=== PATIENT | female | born 1940 | race African-American/Black ===

== ENCOUNTER 2017-01-20 02:41 | Emergency (ER) | payer MEDICARE, BC ==
[~2017-01-20] VITALS: Ht 165.1 cm; Wt 64.0 kg
[2017-01-20 03:39] LABS: BASOPHILS % 0.6 % (0.0-2.0); EOSINOPHILS % 5.3 % (0.0-5.0); LYMPHOCYTES % 16.8 % (20.0-50.0); MEAN CORPUSCULAR HEMOGLOBIN 29.9 pg (28.0-32.0); MEAN CORPUSCULAR VOLUME 89.7 fL (81.0-99.0); MEAN PLATELET VOLUME 7.6 fl (7.4-10.4); MONOCYTES % 8.1 % (2.0-8.0); NEUTROPHILS % 69.2 % (40.0-76.0); PLATELET 236 x1000/uL (130-400); RED BLOOD CELL COUNT 4.02 mill/uL (4.2-5.4); RED CELL DISTRIBUTION WIDTH 12.6 % (11.6-14.6)
[2017-01-20 03:51] LABS: CARBON DIOXIDE 30 mEq/L (21-32); CHLORIDE 101 mEq/L (98-107); PROTHROMBIN TIME 10.6 sec
[2017-01-20] MEDS ORDERED: KETOROLAC 30MG/ML VIAL IV ONE (04:45)
[2017-01-20 04:51] VITALS: BP 181/86
== END 2017-01-20 05:29 | disposition home or self-care (01) ==
LOC: ER 02:42
DX: M25.562 Pain in left knee (principal); M79.652 Pain in left thigh; G89.29 Other chronic pain; M25.561 Pain in right knee; R53.1 Weakness; I10 Essential (primary) hypertension
CPT/HCPCS: 36415; 73552; 80053; 85025; 85610; 93971; 96374; 99285; J1885

== ENCOUNTER 2017-04-16 08:19 | Inpatient (IN) | payer MEDICARE, BC ==
[~2017-04-16] VITALS: Ht 160 cm; Wt 68.0 kg
[2017-04-16] MEDS ORDERED: HYDRALAZINE 20MG/ML VIAL IV ONE (08:45)
[2017-04-16 09:21] LABS: BASOPHILS % 0.4 % (0.0-2.0); EOSINOPHILS % 0.7 % (0.0-5.0); HEMATOCRIT. 33.3 % (36.0-48.0); HEMOGLOBIN. 11.2 g/dL (12.0-16.0); LYMPHOCYTES % 13.5 % (20.0-50.0); MEAN CORPUSCULAR HEMOGLOBIN 32.2 pg (28.0-32.0); MONOCYTES % 9.6 % (2.0-8.0); NEUTROPHILS % 75.8 % (40.0-76.0); PLATELET 233 x1000/uL (130-400); RED BLOOD CELL COUNT 3.47 mill/uL (4.2-5.4); RED CELL DISTRIBUTION WIDTH 15.7 % (11.6-14.6)
[2017-04-16 09:30] LABS: INR 1.1; PROTHROMBIN TIME 11.4 sec (9.4-11.6)
[2017-04-16 09:39] LABS: CARBON DIOXIDE 21 mEq/L (21-32); CHLORIDE 109 mEq/L (98-107); CREATINE KINASE 124 IU/L (26-192); TROPONIN I 0.03 ng/mL (0.00-0.04)
[2017-04-16 09:40] LABS: CREATINE KINASE MB FRACTION 1.3 ng/mL (0.5-3.6)
[2017-04-16] MEDS ORDERED: ACETAMINOPHEN 325MG TABLET PO ONE (10:30)
[2017-04-16] MEDS ORDERED: LORAZEPAM 2MG/ML CPJ IV ONE (14:00)
[2017-04-16] MEDS ORDERED: LORAZEPAM 2MG/ML CPJ ONE (14:05)
[2017-04-16 16:15] VITALS: BP 167/90
[2017-04-16] MEDS ORDERED: ACETAMINOPHEN 325MG TABLET PO PRN (16:45)
[2017-04-16] MEDS ORDERED: ONDANSETRON HCL 4MG/2ML VIAL IV PRN (16:45)
[2017-04-16] MEDS ORDERED: CLONIDINE 0.1MG TABLET PO PRN (16:45)
[2017-04-16] MEDS ORDERED: DONE5TAB33 PO (16:48)
[2017-04-16] MEDS ORDERED: NIFEDIPINE PO (16:50)
[2017-04-16 16:51] VITALS: BP 167/90
[2017-04-16] MEDS ORDERED: DEXT 5%/0.45% NACL 1000ML 1,000 ML IV SCH (17:00)
[2017-04-16] MEDS ORDERED: LEVOFLOXACIN 500MG PREMIX 100 ML IV NR (18:00)
[2017-04-16 18:10] LABS: CREATINE KINASE MB FRACTION 7.7 ng/mL (0.5-3.6)
[2017-04-16 18:16] LABS: TROPONIN I 2.1 ng/mL (0.00-0.04)
[2017-04-16 20:00] VITALS: BP 140/91
[2017-04-17] VITALS: BP 142/79
[2017-04-17 02:47] LABS: CREATINE KINASE MB FRACTION 6.5 ng/mL (0.5-3.6)
[2017-04-17 03:04] LABS: TROPONIN I 1.7 ng/mL (0.00-0.04)
[2017-04-17] MEDS: HYDROCODONE/ACETAMINOPHEN 5/325MG TABLET PO PRN ×3 (03:16→20:53)
[2017-04-17 04:00] VITALS: BP 131/78
[2017-04-17 08:00] VITALS: BP 144/75
[2017-04-17] MEDS ORDERED: ENOXAPARIN 40MG/0.4ML SYR SUBCUT SCH (09:00)
[2017-04-17 09:45] LABS: BASOPHILS % 0.4 % (0.0-2.0); HEMATOCRIT. 32.4 % (36.0-48.0); HEMOGLOBIN. 10.9 g/dL (12.0-16.0); LYMPHOCYTES % 17.1 % (20.0-50.0); MEAN CORPUSCULAR HEMOGLOBIN 32.9 pg (28.0-32.0); MEAN PLATELET VOLUME 7.6 fl (7.4-10.4); MONOCYTES % 10.2 % (2.0-8.0); NEUTROPHILS % 71.3 % (40.0-76.0); PLATELET 249 x1000/uL (130-400); RED CELL DISTRIBUTION WIDTH 16.2 % (11.6-14.6)
[2017-04-17] MEDS: NIFEDIPINE XL 90MG TAB PO SCH (09:50)
[2017-04-17] MEDS: DONEPEZIL HCL 10MG TABLET PO SCH (09:51)
[2017-04-17] MEDS: FOLIC ACID 1MG TABLET PO SCH (09:51)
[2017-04-17] MEDS: THIAMINE HCL 100MG TABLET PO SCH (09:51)
[2017-04-17] MEDS: METOPROLOL TARTRATE 25MG TABLET PO SCH ×2 (09:51→20:53)
[2017-04-17] MEDS ORDERED: ASPIRIN 81MG EC TABLET PO NR (10:00)
[2017-04-17 10:09] LABS: CREATINE KINASE MB FRACTION 5.9 ng/mL (0.5-3.6); PHOSPHORUS 2.9 mg/dL (2.5-4.9)
[2017-04-17 11:11] LABS: TROPONIN I 1.1 ng/mL (0.00-0.04)
[2017-04-17 12:00] VITALS: BP 156/85
[2017-04-17 16:00] VITALS: BP 134/64
[2017-04-17] MEDS ORDERED: ESOM20CA PO (16:58)
[2017-04-17] MEDS ORDERED: ACET-2178 PO (17:00)
[2017-04-17] MEDS ORDERED: DICL100G16 TP (17:02)
[2017-04-17 17:55] LABS: AMMONIA 19 uMol/L (<32)
[2017-04-17 18:10] LABS: FOLIC ACID (FOLATE) SERUM 8.7 ng/mL (>5.38)
[2017-04-17] MEDS: LEVOFLOXACIN 250MG PREMIX 50 ML IV SCH (18:47)
[2017-04-17] MEDS: LORAZEPAM 2MG/ML CPJ IV PRN (18:47)
[2017-04-17 20:00] VITALS: BP 173/88
[2017-04-17 20:27] LABS: ETHANOL BLOOD < 10 mg/dL
[2017-04-17 20:31] LABS: T4 FREE 0.94 ng/dL (0.76-1.46)
[2017-04-17] MEDS: ATORVASTATIN CALCIUM 10MG TABLET PO SCH (20:52)
[2017-04-17 21:02] LABS: TROPONIN I 0.97 ng/mL (0.00-0.04)
[2017-04-18] VITALS: BP 179/83
[2017-04-18] MEDS: LORAZEPAM 2MG/ML CPJ IV PRN ×3 (00:48→21:37)
[2017-04-18 03:40] LABS: *AMPHETAMINES SCREEN URINE NEGATIVE (NEGATIVE); *BARBITURATES SCREEN URINE NEGATIVE (NEGATIVE); *BENZODIAZEPINES SCREEN URINE NEGATIVE (NEGATIVE); CANNABINOID URINE SCREEN NEGATIVE (NEGATIVE); METHADONE URINE SCREEN NEGATIVE (NEGATIVE); OPIATES URINE SCREEN PRESUMTIVE POSITIVE (NEGATIVE); PHENCYCLIDINE URINE SCREEN NEGATIVE (NEGATIVE)
[2017-04-18 04:00] VITALS: BP 161/87
[2017-04-18] MEDS: HYDROCODONE/ACETAMINOPHEN 5/325MG TABLET PO PRN ×2 (04:49→16:29)
[2017-04-18 04:53] LABS: *COCAINE SCREEN URINE NEGATIVE (NEGATIVE)
[2017-04-18 06:25] LABS: BASOPHILS % 0.8 % (0.0-2.0); EOSINOPHILS % 2.9 % (0.0-5.0); HEMATOCRIT. 29.6 % (36.0-48.0); LYMPHOCYTES % 24.5 % (20.0-50.0); MEAN CORPUSCULAR HEMOGLOBIN 33.2 pg (28.0-32.0); MEAN CORPUSCULAR VOLUME 97.8 fL (81.0-99.0); MEAN PLATELET VOLUME 7.5 fl (7.4-10.4); MONOCYTES % 9.3 % (2.0-8.0); NEUTROPHILS % 62.5 % (40.0-76.0); PLATELET 228 x1000/uL (130-400); RED BLOOD CELL COUNT 3.03 mill/uL (4.2-5.4); RED CELL DISTRIBUTION WIDTH 15.5 % (11.6-14.6)
[2017-04-18 07:26] LABS: TROPONIN I 0.76 ng/mL (0.00-0.04)
[2017-04-18] MEDS ORDERED: ENOXAPARIN 60MG/0.6ML SYR SUBCUT SCH ×2 (08:00→21:00)
[2017-04-18 08:53] VITALS: BP 108/61
[2017-04-18] MEDS: METOPROLOL TARTRATE 25MG TABLET PO SCH ×3 (09:00→21:36)
[2017-04-18] MEDS: NIFEDIPINE XL 90MG TAB PO SCH (09:00)
[2017-04-18] MEDS: THIAMINE HCL 100MG TABLET PO SCH (09:29)
[2017-04-18] MEDS: DONEPEZIL HCL 10MG TABLET PO SCH (09:30)
[2017-04-18] MEDS: ASPIRIN 81MG EC TABLET PO SCH (09:30)
[2017-04-18] MEDS: FOLIC ACID 1MG TABLET PO SCH (09:32)
[2017-04-18] MEDS ORDERED: POTASSIUM CHLORIDE 20MEQ/PACKET PO NR (10:30)
[2017-04-18 12:00] VITALS: BP 136/67
[2017-04-18] MEDS ORDERED: POTASSIUM CHLORIDE INJ 40 MEQ in DEXT 5% WATER 250 ML IV NR (13:00)
[2017-04-18] MEDS ORDERED: MEDICATION NOT ON FORMULARY EA (Esomeprazole Mag Trihydrate (Nexium) 1 CAP) PO SCH (13:00)
[2017-04-18 16:48] VITALS: BP 136/85
[2017-04-18] MEDS: LEVOFLOXACIN 250MG PREMIX 50 ML IV SCH (17:13)
[2017-04-18 20:00] VITALS: BP 139/73
[2017-04-18 20:27] LABS: CLARITY URINE CLOUDY (CLEAR); COLOR URINE DARK YELLOW (YELLOW); GLUCOSE URINE NEGATIVE (NEGATIVE); KETONES URINE TRACE (NEGATIVE); LEUKOCYTE ESTERASE URINE 1+ (NEGATIVE); NITRITE URINE NEGATIVE (NEGATIVE); OCCULT BLOOD URINE 3+ (NEGATIVE); PH URINE 5.5 (4.5-8.0); PROTEIN URINE 2+ (NEGATIVE); SPECIFIC GRAVITY URINE 1.025 (1.005-1.030)
[2017-04-18] MEDS: ATORVASTATIN CALCIUM 10MG TABLET PO SCH ×2 (21:00→21:35)
[2017-04-19] VITALS: BP 120/60
[2017-04-19] MEDS: LORAZEPAM 2MG/ML CPJ IV PRN ×3 (01:37→22:40)
[2017-04-19 04:00] VITALS: BP 113/58
[2017-04-19 06:19] LABS: BASOPHILS % 0.6 % (0.0-2.0); EOSINOPHILS % 3.2 % (0.0-5.0); HEMATOCRIT. 32.1 % (36.0-48.0); HEMOGLOBIN. 10.9 g/dL (12.0-16.0); LYMPHOCYTES % 26.9 % (20.0-50.0); MEAN CORPUSCULAR HEMOGLOBIN 32.9 pg (28.0-32.0); MEAN CORPUSCULAR VOLUME 97.4 fL (81.0-99.0); MEAN PLATELET VOLUME 7.4 fl (7.4-10.4); MONOCYTES % 9.7 % (2.0-8.0); NEUTROPHILS % 59.6 % (40.0-76.0); PLATELET 249 x1000/uL (130-400); RED CELL DISTRIBUTION WIDTH 15.3 % (11.6-14.6)
[2017-04-19] MEDS ORDERED: PANTOPRAZOLE 40MG DR TABLET PO SCH (06:45)
[2017-04-19 07:40] VITALS: BP 129/67
[2017-04-19] MEDS: ENOXAPARIN 80MG/0.8ML SYR SUBCUT SCH ×3 (09:00→09:54)
[2017-04-19] MEDS: THIAMINE HCL 100MG TABLET PO SCH ×3 (09:00→09:55)
[2017-04-19] MEDS: FOLIC ACID 1MG TABLET PO SCH ×3 (09:00→09:44)
[2017-04-19] MEDS: ASPIRIN 81MG EC TABLET PO SCH ×3 (09:00→09:54)
[2017-04-19] MEDS: NIFEDIPINE XL 90MG TAB PO SCH ×3 (09:00→09:55)
[2017-04-19] MEDS: DONEPEZIL HCL 10MG TABLET PO SCH ×3 (09:00→09:54)
[2017-04-19] MEDS: FAMOTIDINE 20MG TABLET PO SCH ×3 (09:00→09:55)
[2017-04-19] MEDS: METOPROLOL TARTRATE 25MG TABLET PO SCH ×4 (09:00→20:47)
[2017-04-19 11:10] VITALS: BP 98/56
[2017-04-19] MEDS ORDERED: DICLOFENAC SODIUM 100 GM TP PRN (11:30)
[2017-04-19] MEDS: LEVOFLOXACIN 250MG TABLET PO SCH (12:17)
[2017-04-19] MEDS ORDERED: SENNOSIDES/DOCUSATE SOD 8.6/50MG TABLET PO PRN (12:30)
[2017-04-19] MEDS: DOCUSATE SODIUM 100MG CAPSULE PO SCH ×2 (12:37→17:18)
[2017-04-19] MEDS ORDERED: ACETAMINOPHEN 325MG TABLET PO SCH (13:00)
[2017-04-19] MEDS: SODIUM CHLORIDE 0.9% 1,000 ML IV SCH (13:16)
[2017-04-19 15:28] VITALS: BP 115/74
[2017-04-19 20:00] VITALS: BP 135/73
[2017-04-19] MEDS: ATORVASTATIN CALCIUM 10MG TABLET PO SCH (20:46)
[2017-04-20] VITALS: BP 140/81
[2017-04-20 04:00] VITALS: BP 143/79
[2017-04-20 06:20] LABS: BASOPHILS % 0.6 % (0.0-2.0); EOSINOPHILS % 4.3 % (0.0-5.0); HEMATOCRIT. 32.4 % (36.0-48.0); HEMOGLOBIN. 10.9 g/dL (12.0-16.0); LYMPHOCYTES % 21.3 % (20.0-50.0); MEAN CORPUSCULAR HEMOGLOBIN 33.1 pg (28.0-32.0); MEAN CORPUSCULAR VOLUME 97.9 fL (81.0-99.0); MEAN PLATELET VOLUME 7.9 fl (7.4-10.4); MONOCYTES % 10.5 % (2.0-8.0); NEUTROPHILS % 63.3 % (40.0-76.0); PLATELET 239 x1000/uL (130-400); RED BLOOD CELL COUNT 3.31 mill/uL (4.2-5.4); RED CELL DISTRIBUTION WIDTH 15.3 % (11.6-14.6)
[2017-04-20 07:23] LABS: TROPONIN I 0.16 ng/mL (0.00-0.04)
[2017-04-20] MEDS ORDERED: POTASSIUM CHLORIDE 20MEQ TABLET SR PO NR (07:45)
[2017-04-20 08:00] VITALS: BP 118/64
[2017-04-20] MEDS: DOCUSATE SODIUM 100MG CAPSULE PO SCH ×2 (08:26→16:32)
[2017-04-20] MEDS: DONEPEZIL HCL 10MG TABLET PO SCH (08:26)
[2017-04-20] MEDS: ASPIRIN 81MG EC TABLET PO SCH (08:26)
[2017-04-20] MEDS: FOLIC ACID 1MG TABLET PO SCH (08:26)
[2017-04-20] MEDS: THIAMINE HCL 100MG TABLET PO SCH (08:26)
[2017-04-20] MEDS: FAMOTIDINE 20MG TABLET PO SCH (08:27)
[2017-04-20] MEDS: SODIUM CHLORIDE 0.9% 1,000 ML IV SCH (08:27)
[2017-04-20] MEDS: ENOXAPARIN 80MG/0.8ML SYR SUBCUT SCH (08:28)
[2017-04-20] MEDS: METOPROLOL TARTRATE 25MG TABLET PO SCH ×2 (08:30→21:54)
[2017-04-20] MEDS: NIFEDIPINE XL 90MG TAB PO SCH (08:30)
[2017-04-20] MEDS: LEVOFLOXACIN 250MG TABLET PO SCH (11:51)
[2017-04-20 12:00] VITALS: BP 110/71
[2017-04-20 16:00] VITALS: BP 126/58
[2017-04-20 20:00] VITALS: BP 132/69
[2017-04-20] MEDS: ATORVASTATIN CALCIUM 10MG TABLET PO SCH (21:55)
[2017-04-20] MEDS: LORAZEPAM 2MG/ML CPJ IV PRN (21:55)
[2017-04-21] VITALS: BP 145/64
[2017-04-21 04:00] VITALS: BP 148/71
[2017-04-21 08:00] VITALS: BP 133/94
[2017-04-21] MEDS: DOCUSATE SODIUM 100MG CAPSULE PO SCH ×2 (09:02→17:00)
[2017-04-21] MEDS: ENOXAPARIN 80MG/0.8ML SYR SUBCUT SCH (09:02)
[2017-04-21] MEDS: FAMOTIDINE 20MG TABLET PO SCH (09:02)
[2017-04-21] MEDS: ASPIRIN 81MG EC TABLET PO SCH (09:02)
[2017-04-21] MEDS: DONEPEZIL HCL 10MG TABLET PO SCH (09:03)
[2017-04-21] MEDS: FOLIC ACID 1MG TABLET PO SCH (09:03)
[2017-04-21] MEDS: THIAMINE HCL 100MG TABLET PO SCH (09:03)
[2017-04-21] MEDS: NIFEDIPINE XL 90MG TAB PO SCH (09:04)
[2017-04-21] MEDS: METOPROLOL TARTRATE 25MG TABLET PO SCH (09:04)
[2017-04-21 09:42] LABS: BASOPHILS % 0.7 % (0.0-2.0); EOSINOPHILS % 4.8 % (0.0-5.0); HEMATOCRIT. 33.3 % (36.0-48.0); HEMOGLOBIN. 11.2 g/dL (12.0-16.0); LYMPHOCYTES % 19.4 % (20.0-50.0); MEAN CORPUSCULAR HEMOGLOBIN 33.2 pg (28.0-32.0); MEAN CORPUSCULAR VOLUME 98.9 fL (81.0-99.0); MEAN PLATELET VOLUME 7.5 fl (7.4-10.4); MONOCYTES % 11.7 % (2.0-8.0); NEUTROPHILS % 63.4 % (40.0-76.0); PLATELET 208 x1000/uL (130-400); RED BLOOD CELL COUNT 3.37 mill/uL (4.2-5.4); RED CELL DISTRIBUTION WIDTH 15.2 % (11.6-14.6)
[2017-04-21 10:10] LABS: CARBON DIOXIDE 27 mEq/L (21-32); CHLORIDE 104 mEq/L (98-107)
[2017-04-21] MEDS: LACTULOSE 20G/30ML UDC PO SCH ×2 (11:35→14:00)
[2017-04-21] MEDS: LEVOFLOXACIN 250MG TABLET PO SCH (11:35)
[2017-04-21 12:00] VITALS: BP 120/66
[2017-04-21 16:44] VITALS: BP 120/66
[2017-04-21 19:53] VITALS: BP 120/66
== END 2017-04-21 20:00 | DRG 280 ==
LOC: EDBD → ER 08:19 → 5WST 09:52 → EDBEDREQ 09:55 → EDBEDREQTM 09:55 → CANRESERV 14:16 → ENRESERV 14:16
PROVIDERS: ADMIT Internal Medicine Nephrology; ATTEND Internal Medicine Nephrology
DX: I21.4 Non-ST elevation (NSTEMI) myocardial infarction (principal); G92 Toxic encephalopathy; N17.9 Acute kidney failure, unspecified; N39.0 Urinary tract infection, site not specified; W18.39XA Other fall on same level, initial encounter; I16.0 Hypertensive urgency; E86.0 Dehydration; M79.604 Pain in right leg; D64.9 Anemia, unspecified; I13.10 Hypertensive heart and chronic kidney disease without heart failure, with stage 1 through stage 4 chronic kidney disease, or unspecified chronic kidney disease; N18.9 Chronic kidney disease, unspecified; K21.9 Gastro-esophageal reflux disease without esophagitis; F03.90 Unspecified dementia, unspecified severity, without behavioral disturbance, psychotic disturbance, mood disturbance, and anxiety; E78.00 Pure hypercholesterolemia, unspecified; I25.10 Atherosclerotic heart disease of native coronary artery without angina pectoris; I35.1 Nonrheumatic aortic (valve) insufficiency; M19.90 Unspecified osteoarthritis, unspecified site; Z79.899 Other long term (current) drug therapy; Z86.73 Personal history of transient ischemic attack (TIA), and cerebral infarction without residual deficits; I25.2 Old myocardial infarction; Y93.89 Activity, other specified; Y92.89 Other specified places as the place of occurrence of the external cause; Y99.8 Other external cause status
CPT/HCPCS: 36415; 70450; 70551; 71010; 72170; 73590; 80048; 80053; 80305; 81001; 82140; 82550; 82553; 82607; 82746; 82962; 83036; 83605; 83690; 83735; 83880; 84100; 84439; 84443; 84481; 84484; 85025; 85610; 85730; 87040; 87086; 92610; 93005; 93306; 96374; 96375; 97116; 97163; 97530; 99291; G0482; J0360; J1650; J1956; J2060; J3480; J3490; J7030; J7060; A4315

== ENCOUNTER 2017-05-17 16:55 | Emergency (ER) | payer MEDICARE, BC ==
[~2017-05-17] VITALS: Ht 167.6 cm; Wt 73.0 kg
[~2017-05-17 16:55] MED LIST: ACET-2178 PO; DICL100G16 TP; DONE5TAB33 PO; ESOM20CA PO; NIFEDIPINE PO
[2017-05-17] MEDS ORDERED: DONEPEZIL HCL 5MG TABLET PO ONE (18:15)
[2017-05-17] MEDS ORDERED: MEMANTINE HCL 5MG TABLET PO ONE (18:15)
[2017-05-17] MEDS ORDERED: LORAZEPAM 1MG TABLET PO ONE (18:15)
[2017-05-17 19:01] VITALS: BP 133/75
== END 2017-05-17 19:12 | disposition home or self-care (01) ==
LOC: EDBD → ER 17:45
DX: R41.82 Altered mental status, unspecified (principal); M19.90 Unspecified osteoarthritis, unspecified site; I10 Essential (primary) hypertension; F03.90 Unspecified dementia, unspecified severity, without behavioral disturbance, psychotic disturbance, mood disturbance, and anxiety; Z90.710 Acquired absence of both cervix and uterus; Z91.19 Patient's noncompliance with other medical treatment and regimen
CPT/HCPCS: 99284

== ENCOUNTER 2017-05-26 14:56 | Inpatient (IN) | payer MEDICARE, BC ==
[~2017-05-26] VITALS: Ht 162.6 cm; Wt 74.8 kg
[2017-05-26 17:25] LABS: CLARITY URINE CLOUDY (CLEAR); COLOR URINE DARK YELLOW (YELLOW); GLUCOSE URINE NEGATIVE (NEGATIVE); KETONES URINE 1+ (NEGATIVE); LEUKOCYTE ESTERASE URINE 2+ (NEGATIVE); NITRITE URINE NEGATIVE (NEGATIVE); OCCULT BLOOD URINE NEGATIVE (NEGATIVE); PROTEIN URINE 1+ (NEGATIVE); SPECIFIC GRAVITY URINE 1.037 (1.005-1.030)
[2017-05-26 17:29] LABS: BASOPHILS % 0.6 % (0.0-2.0); EOSINOPHILS % 0.8 % (0.0-5.0); HEMATOCRIT. 33.2 % (36.0-48.0); LYMPHOCYTES % 19.8 % (20.0-50.0); MEAN CORPUSCULAR VOLUME 96.3 fL (81.0-99.0); MEAN PLATELET VOLUME 7.9 fl (7.4-10.4); MONOCYTES % 7.1 % (2.0-8.0); NEUTROPHILS % 71.7 % (40.0-76.0); PLATELET 218 x1000/uL (130-400); RED BLOOD CELL COUNT 3.45 mill/uL (4.2-5.4); RED CELL DISTRIBUTION WIDTH 13.1 % (11.6-14.6)
[2017-05-26 17:39] LABS: CHLORIDE 104 mEq/L (98-107)
[2017-05-26 17:42] LABS: *AMPHETAMINES SCREEN URINE NEGATIVE (NEGATIVE); *BARBITURATES SCREEN URINE NEGATIVE (NEGATIVE); *BENZODIAZEPINES SCREEN URINE NEGATIVE (NEGATIVE); *COCAINE SCREEN URINE NEGATIVE (NEGATIVE); CANNABINOID URINE SCREEN NEGATIVE (NEGATIVE); METHADONE URINE SCREEN NEGATIVE (NEGATIVE); OPIATES URINE SCREEN NEGATIVE (NEGATIVE); PHENCYCLIDINE URINE SCREEN NEGATIVE (NEGATIVE)
[2017-05-26 17:47] LABS: CARBON DIOXIDE 28 mEq/L (21-32); ETHANOL BLOOD < 10 mg/dL
[2017-05-26] MEDS ORDERED: SODIUM CHLORIDE 0.9% 500 ML IV ONE (18:23)
[2017-05-26] MEDS ORDERED: CEFTRIAXONE 1 G PREMIX 50 ML IV ONE (18:30)
[2017-05-26 23:00] VITALS: BP 157/72
[2017-05-26] MEDS ORDERED: MORPHINE SULFATE 4 MG/ML CPJ (NOT FOR IM USE) IV PRN (23:21)
[2017-05-26] MEDS: SODIUM CHLORIDE 0.9% 1,000 ML IV SCH (23:30)
[2017-05-27] VITALS: BP 157/72
[2017-05-27] MEDS: LORAZEPAM 2MG/ML CPJ IV PRN ×3 (01:22→20:50)
[2017-05-27 04:00] VITALS: BP 145/98
[2017-05-27 07:59] LABS: BASOPHILS % 0.5 % (0.0-2.0); EOSINOPHILS % 1.3 % (0.0-5.0); HEMATOCRIT. 29.9 % (36.0-48.0); HEMOGLOBIN. 9.9 g/dL (12.0-16.0); MEAN CORPUSCULAR HEMOGLOBIN 32.2 pg (28.0-32.0); MEAN CORPUSCULAR VOLUME 97.2 fL (81.0-99.0); MEAN PLATELET VOLUME 8.2 fl (7.4-10.4); MONOCYTES % 7.4 % (2.0-8.0); NEUTROPHILS % 73.8 % (40.0-76.0); PLATELET 199 x1000/uL (130-400); RED BLOOD CELL COUNT 3.08 mill/uL (4.2-5.4)
[2017-05-27 08:00] VITALS: BP 147/73
[2017-05-27 08:10] LABS: CARBON DIOXIDE 28 mEq/L (21-32); CHLORIDE 107 mEq/L (98-107)
[2017-05-27] MEDS ORDERED: ENOXAPARIN 40MG/0.4ML SYR SUBCUT SCH ×2 (09:00→11:15)
[2017-05-27] MEDS ORDERED: ENOXAPARIN 30MG/0.3ML SYR SUBCUT SCH (09:00)
[2017-05-27] MEDS: SODIUM CHLORIDE 0.9% 1,000 ML IV SCH (09:23)
[2017-05-27] MEDS ORDERED: IPRATROPIUM/ALBUTEROL 0.5-3(2.5)MG/3ML NEB INH PRN (11:00)
[2017-05-27] MEDS ORDERED: CLONIDINE 0.1MG TABLET PO PRN (11:15)
[2017-05-27] MEDS ORDERED: HYDROCODONE/ACETAMINOPHEN 5/325MG TABLET PO PRN (11:15)
[2017-05-27] MEDS ORDERED: MORPHINE SULFATE 2 MG/ML CPJ (NOT FOR IM USE) IV PRN (11:15)
[2017-05-27] MEDS ORDERED: ONDANSETRON HCL 4MG/2ML VIAL IV PRN (11:15)
[2017-05-27 12:00] VITALS: BP 109/66
[2017-05-27] MEDS ORDERED: METHYLPREDNISOLONE SOD SUCC 125 MG/2 ML VIAL IV SCH (12:00)
[2017-05-27] MEDS: ACETAMINOPHEN 500MG TABLET PO SCH ×2 (13:00→18:12)
[2017-05-27 16:00] VITALS: BP 153/75
[2017-05-27 16:59] LABS: CREATINE KINASE MB FRACTION 6.3 ng/mL (0.5-3.6); TROPONIN I 0.08 ng/mL (0.00-0.04)
[2017-05-27] MEDS: CEFTRIAXONE 1 G PREMIX 50 ML IV SCH (18:13)
[2017-05-27 20:00] VITALS: BP 125/87
[2017-05-27] MEDS: DONEPEZIL HCL 5MG TABLET PO SCH (21:00)
[2017-05-28] VITALS: BP 157/73
[2017-05-28] MEDS: LORAZEPAM 2MG/ML CPJ IV PRN ×3 (02:00→15:21)
[2017-05-28 04:00] VITALS: BP 171/91
[2017-05-28 08:00] VITALS: BP 151/77
[2017-05-28] MEDS: ASPIRIN 81MG EC TABLET PO SCH (10:10)
[2017-05-28] MEDS: ACETAMINOPHEN 500MG TABLET PO SCH ×3 (10:10→17:43)
[2017-05-28] MEDS: THIAMINE HCL 100MG TABLET PO SCH (10:11)
[2017-05-28] MEDS: ENOXAPARIN 40MG/0.4ML SYR SUBCUT SCH (10:25)
[2017-05-28 12:00] VITALS: BP 137/80
[2017-05-28 12:08] LABS: CREATINE KINASE MB FRACTION 4.8 ng/mL (0.5-3.6); TROPONIN I 0.06 ng/mL (0.00-0.04)
[2017-05-28] MEDS: SODIUM CHLORIDE 0.9% 1,000 ML IV SCH (15:30)
[2017-05-28 16:00] VITALS: BP 137/68
[2017-05-28] MEDS: CEFTRIAXONE 1 G PREMIX 50 ML IV SCH (18:00)
[2017-05-28 20:00] VITALS: BP 144/69
[2017-05-28] MEDS: DONEPEZIL HCL 5MG TABLET PO SCH (21:00)
[2017-05-29] VITALS: BP 136/79
[2017-05-29 04:00] VITALS: BP 164/67
[2017-05-29 08:00] VITALS: BP 124/70
[2017-05-29] MEDS: ASPIRIN 81MG EC TABLET PO SCH (08:00)
[2017-05-29] MEDS: THIAMINE HCL 100MG TABLET PO SCH (08:00)
[2017-05-29] MEDS: ACETAMINOPHEN 500MG TABLET PO SCH ×3 (08:01→17:00)
[2017-05-29] MEDS: ENOXAPARIN 40MG/0.4ML SYR SUBCUT SCH (08:01)
[2017-05-29 10:46] LABS: BASOPHILS % 0.7 % (0.0-2.0); EOSINOPHILS % 5.3 % (0.0-5.0); HEMATOCRIT. 28.3 % (36.0-48.0); HEMOGLOBIN. 9.4 g/dL (12.0-16.0); LYMPHOCYTES % 26.7 % (20.0-50.0); MEAN CORPUSCULAR HEMOGLOBIN 32.1 pg (28.0-32.0); MEAN CORPUSCULAR VOLUME 96.4 fL (81.0-99.0); MEAN PLATELET VOLUME 7.9 fl (7.4-10.4); MONOCYTES % 8.5 % (2.0-8.0); NEUTROPHILS % 58.8 % (40.0-76.0); PLATELET 201 x1000/uL (130-400); RED BLOOD CELL COUNT 2.94 mill/uL (4.2-5.4); RED CELL DISTRIBUTION WIDTH 13.2 % (11.6-14.6)
[2017-05-29 11:13] LABS: PHOSPHORUS 3.4 mg/dL (2.5-4.9)
[2017-05-29 12:00] VITALS: BP 131/68
[2017-05-29 16:00] VITALS: BP 116/93
[2017-05-29] MEDS: CEFTRIAXONE 1 G PREMIX 50 ML IV SCH (18:00)
[2017-05-29 20:00] VITALS: BP 160/70
[2017-05-29] MEDS: DONEPEZIL HCL 5MG TABLET PO SCH (21:54)
[2017-05-30] MEDS: ACETAMINOPHEN 500MG TABLET PO SCH (09:37)
[2017-05-30] MEDS: THIAMINE HCL 100MG TABLET PO SCH (09:37)
[2017-05-30] MEDS: ASPIRIN 81MG EC TABLET PO SCH (09:37)
[2017-05-30] MEDS: ENOXAPARIN 40MG/0.4ML SYR SUBCUT SCH (09:38)
[2017-05-30 14:36] VITALS: BP 130/79
== END 2017-05-30 15:00 | disposition home or self-care (01) | DRG 70 ==
LOC: EDBD → ER 14:56 → 6EST 20:46 → ENRESERV 21:15 → 6EST 22:20
PROVIDERS: ADMIT Internal Medicine Nephrology; ATTEND Internal Medicine Nephrology
DX: G93.41 Metabolic encephalopathy (principal); N17.0 Acute kidney failure with tubular necrosis; F03.91 Unspecified dementia, unspecified severity, with behavioral disturbance; N39.0 Urinary tract infection, site not specified; Z78.1 Physical restraint status; E86.0 Dehydration; I10 Essential (primary) hypertension; Z90.710 Acquired absence of both cervix and uterus; M19.90 Unspecified osteoarthritis, unspecified site; Z79.899 Other long term (current) drug therapy
CPT/HCPCS: 36415; 71010; 80048; 80053; 80305; 81001; 82550; 82553; 82962; 83735; 84100; 84484; 85025; 93306; 97162; 99285; C1893; G0482; J0696; J1650; J2060; J7030; J7040

== ENCOUNTER 2017-06-01 15:10 | Emergency (ER) | payer MEDICARE, BC ==
[~2017-06-01] VITALS: Ht 162.6 cm; Wt 71.0 kg
[2017-06-01 15:20] VITALS: BP 108/56
== END 2017-06-01 17:43 | disposition left against medical advice (07) ==
LOC: EDBD → ER 15:10
DX: R40.4 Transient alteration of awareness (principal); F03.90 Unspecified dementia, unspecified severity, without behavioral disturbance, psychotic disturbance, mood disturbance, and anxiety; Z53.21 Procedure and treatment not carried out due to patient leaving prior to being seen by health care provider

== ENCOUNTER 2017-06-12 14:20 | Inpatient (IN) | payer MEDICARE, BC ==
[~2017-06-12] VITALS: Ht 162.6 cm; Wt 68.0 kg
[2017-06-12] MEDS ORDERED: DEXT 5%/0.45% NACL 1000ML 1,000 ML IV ONE (14:54)
[2017-06-12 15:28] LABS: CHLORIDE 103 mEq/L (98-107)
[2017-06-12 15:29] LABS: BASOPHILS % 0.8 % (0.0-2.0); EOSINOPHILS % 4.1 % (0.0-5.0); HEMATOCRIT. 29.9 % (36.0-48.0); HEMOGLOBIN. 10.1 g/dL (12.0-16.0); LYMPHOCYTES % 24.6 % (20.0-50.0); MEAN CORPUSCULAR VOLUME 97.9 fL (81.0-99.0); MEAN PLATELET VOLUME 7.5 fl (7.4-10.4); MONOCYTES % 8.5 % (2.0-8.0); PLATELET 253 x1000/uL (130-400); RED BLOOD CELL COUNT 3.05 mill/uL (4.2-5.4); RED CELL DISTRIBUTION WIDTH 13.6 % (11.6-14.6)
[2017-06-12 15:32] LABS: AMMONIA 16 uMol/L (<32)
[2017-06-12 15:39] LABS: CARBON DIOXIDE 26 mEq/L (21-32); CREATINE KINASE 37 IU/L (26-192); ETHANOL BLOOD < 10 mg/dL; TROPONIN I < 0.02 ng/mL (0.00-0.04)
[2017-06-12] MEDS ORDERED: LORAZEPAM 2MG/ML CPJ IV ONE (17:00)
[2017-06-12 18:20] LABS: CLARITY URINE CLEAR (CLEAR); COLOR URINE YELLOW (YELLOW); GLUCOSE URINE NEGATIVE (NEGATIVE); KETONES URINE NEGATIVE (NEGATIVE); LEUKOCYTE ESTERASE URINE 2+ (NEGATIVE); NITRITE URINE NEGATIVE (NEGATIVE); OCCULT BLOOD URINE NEGATIVE (NEGATIVE); PROTEIN URINE NEGATIVE (NEGATIVE); SPECIFIC GRAVITY URINE 1.013 (1.005-1.030); UROBILINOGEN URINE 0.2 E.U./dL (0.2-1.0)
[2017-06-12 18:33] LABS: *AMPHETAMINES SCREEN URINE NEGATIVE (NEGATIVE); *BARBITURATES SCREEN URINE NEGATIVE (NEGATIVE); *BENZODIAZEPINES SCREEN URINE NEGATIVE (NEGATIVE); *COCAINE SCREEN URINE NEGATIVE (NEGATIVE); CANNABINOID URINE SCREEN NEGATIVE (NEGATIVE); METHADONE URINE SCREEN NEGATIVE (NEGATIVE); OPIATES URINE SCREEN NEGATIVE (NEGATIVE); PHENCYCLIDINE URINE SCREEN NEGATIVE (NEGATIVE)
[2017-06-12] MEDS ORDERED: ZIPRASIDONE MESYLATE 20MG/VIAL IM ONE (18:45)
[2017-06-12] MEDS ORDERED: CEFTRIAXONE 1 G PREMIX 50 ML IV ONE (20:00)
[2017-06-12 21:20] VITALS: BP 158/82
[2017-06-12 21:30] VITALS: BP 158/82
[2017-06-12] MEDS ORDERED: LORAZEPAM 2MG/ML CPJ IV PRN (22:22)
[2017-06-12] MEDS ORDERED: DEXT 5%/0.9% NACL 1,000 ML IV SCH (22:30)
[2017-06-13] VITALS: BP 145/77
[2017-06-13 04:00] VITALS: BP 156/66
[2017-06-13 08:00] VITALS: BP 141/60
[2017-06-13] MEDS ORDERED: ENOXAPARIN 40MG/0.4ML SYR SUBCUT SCH (09:00)
[2017-06-13] MEDS: ENOXAPARIN 30MG/0.3ML SYR SUBCUT SCH (09:02)
[2017-06-13 12:00] VITALS: BP 146/61
[2017-06-13] MEDS ORDERED: ONDANSETRON HCL 4MG/2ML VIAL IV PRN (14:00)
[2017-06-13] MEDS ORDERED: MORPHINE SULFATE 10 MG/ML CPJ IV PRN (14:00)
[2017-06-13] MEDS: THIAMINE HCL 100MG TABLET PO SCH (14:00)
[2017-06-13] MEDS ORDERED: DICLOFENAC SODIUM 100 GM TP PRN (14:30)
[2017-06-13] MEDS: SODIUM CHLORIDE 0.9% 1,000 ML IV SCH (14:39)
[2017-06-13] MEDS: CEFTRIAXONE 1 G PREMIX 50 ML IV SCH (14:58)
[2017-06-13 16:00] VITALS: BP 139/65
[2017-06-13] MEDS: ACETAMINOPHEN 325MG TABLET PO SCH (16:24)
[2017-06-13] MEDS: NIFEDIPINE XL 90MG TAB PO SCH (16:24)
[2017-06-13 19:52] VITALS: BP 130/57
[2017-06-13 21:34] LABS: CLARITY URINE CLEAR (CLEAR); COLOR URINE YELLOW (YELLOW); GLUCOSE URINE NEGATIVE (NEGATIVE); KETONES URINE NEGATIVE (NEGATIVE); LEUKOCYTE ESTERASE URINE NEGATIVE (NEGATIVE); NITRITE URINE NEGATIVE (NEGATIVE); OCCULT BLOOD URINE NEGATIVE (NEGATIVE); PH URINE 6.5 (4.5-8.0); PROTEIN URINE NEGATIVE (NEGATIVE); SPECIFIC GRAVITY URINE 1.012 (1.005-1.030); UROBILINOGEN URINE 0.2 E.U./dL (0.2-1.0)
[2017-06-14] VITALS: BP 146/62
[2017-06-14 04:00] VITALS: BP 137/64
[2017-06-14] MEDS: SODIUM CHLORIDE 0.9% 1,000 ML IV SCH ×2 (04:26→20:35)
[2017-06-14 07:28] LABS: BASOPHILS % 0.7 % (0.0-2.0); EOSINOPHILS % 5.5 % (0.0-5.0); HEMATOCRIT. 29.5 % (36.0-48.0); HEMOGLOBIN. 9.8 g/dL (12.0-16.0); LYMPHOCYTES % 31.6 % (20.0-50.0); MEAN CORPUSCULAR HEMOGLOBIN 32.3 pg (28.0-32.0); MEAN CORPUSCULAR VOLUME 97.4 fL (81.0-99.0); MEAN PLATELET VOLUME 7.5 fl (7.4-10.4); MONOCYTES % 8.2 % (2.0-8.0); PLATELET 246 x1000/uL (130-400); RED BLOOD CELL COUNT 3.03 mill/uL (4.2-5.4); RED CELL DISTRIBUTION WIDTH 13.7 % (11.6-14.6)
[2017-06-14 08:00] VITALS: BP 142/67
[2017-06-14] MEDS ORDERED: MEDICATION NOT ON FORMULARY EA (Esomeprazole Mag Trihydrate (Nexium) 1 CAP) PO SCH (09:00)
[2017-06-14] MEDS: NIFEDIPINE XL 90MG TAB PO SCH (09:37)
[2017-06-14] MEDS: THIAMINE HCL 100MG TABLET PO SCH (10:41)
[2017-06-14] MEDS: FOLIC ACID 1MG TABLET PO SCH (10:41)
[2017-06-14] MEDS: ACETAMINOPHEN 325MG TABLET PO SCH (10:42)
[2017-06-14] MEDS: DONEPEZIL HCL 5MG TABLET PO SCH (10:42)
[2017-06-14] MEDS: PANTOPRAZOLE 40MG DR TABLET PO SCH (10:42)
[2017-06-14] MEDS: ENOXAPARIN 30MG/0.3ML SYR SUBCUT SCH (10:43)
[2017-06-14 12:00] VITALS: BP 129/59
[2017-06-14] MEDS: ACETAMINOPHEN 500MG TABLET PO SCH ×2 (15:09→18:04)
[2017-06-14] MEDS: CEFTRIAXONE 1 G PREMIX 50 ML IV SCH (15:09)
[2017-06-14 16:00] VITALS: BP 131/66
[2017-06-14 20:00] VITALS: BP 151/69
[2017-06-14] MEDS: DOCUSATE SODIUM 100MG CAPSULE PO SCH (20:35)
[2017-06-14] MEDS: LORAZEPAM 2MG/ML CPJ IV PRN (20:53)
[2017-06-15] VITALS: BP 143/56
[2017-06-15 04:00] VITALS: BP 148/75
[2017-06-15 08:00] VITALS: BP 138/59
[2017-06-15] MEDS: DONEPEZIL HCL 5MG TABLET PO SCH (08:50)
[2017-06-15] MEDS: ACETAMINOPHEN 500MG TABLET PO SCH ×3 (08:50→17:00)
[2017-06-15] MEDS: PANTOPRAZOLE 40MG DR TABLET PO SCH (08:50)
[2017-06-15] MEDS: FOLIC ACID 1MG TABLET PO SCH (08:50)
[2017-06-15] MEDS: HYDROCODONE/ACETAMINOPHEN 5/325MG TABLET PO PRN ×3 (08:51→17:11)
[2017-06-15] MEDS: NIFEDIPINE XL 90MG TAB PO SCH (08:51)
[2017-06-15] MEDS: THIAMINE HCL 100MG TABLET PO SCH (08:51)
[2017-06-15] MEDS: DOCUSATE SODIUM 100MG CAPSULE PO SCH ×2 (08:51→17:11)
[2017-06-15] MEDS ORDERED: ENOXAPARIN 40MG/0.4ML SYR SUBCUT SCH (09:00)
[2017-06-15] MEDS: LORAZEPAM 2MG/ML CPJ IV PRN ×3 (09:02→23:23)
[2017-06-15 11:03] LABS: BASOPHILS % 1.1 % (0.0-2.0); EOSINOPHILS % 0.4 % (0.0-5.0); HEMATOCRIT. 30.4 % (36.0-48.0); HEMOGLOBIN. 10.2 g/dL (12.0-16.0); LYMPHOCYTES % 8.7 % (20.0-50.0); MEAN CORPUSCULAR HEMOGLOBIN 33.6 pg (28.0-32.0); MEAN CORPUSCULAR VOLUME 99.8 fL (81.0-99.0); MEAN PLATELET VOLUME 8.2 fl (7.4-10.4); MONOCYTES % 4.6 % (2.0-8.0); NEUTROPHILS % 85.2 % (40.0-76.0); PLATELET 90 x1000/uL (130-400); RED BLOOD CELL COUNT 3.04 mill/uL (4.2-5.4); RED CELL DISTRIBUTION WIDTH 13.7 % (11.6-14.6)
[2017-06-15 11:26] LABS: CARBON DIOXIDE 24 mEq/L (21-32); CHLORIDE 109 mEq/L (98-107)
[2017-06-15 12:00] VITALS: BP 115/76
[2017-06-15] MEDS: CEFTRIAXONE 1 G PREMIX 50 ML IV SCH (15:36)
[2017-06-15 16:00] VITALS: BP 143/73
[2017-06-15 20:00] VITALS: BP 163/73
[2017-06-16] VITALS: BP 170/71
[2017-06-16 04:00] VITALS: BP 157/75
[2017-06-16] MEDS: LORAZEPAM 2MG/ML CPJ IV PRN ×2 (06:09→09:07)
[2017-06-16 08:00] VITALS: BP 151/77
[2017-06-16] MEDS: ACETAMINOPHEN 500MG TABLET PO SCH ×3 (09:00→16:20)
[2017-06-16] MEDS: DOCUSATE SODIUM 100MG CAPSULE PO SCH ×2 (09:06→16:20)
[2017-06-16] MEDS: DONEPEZIL HCL 5MG TABLET PO SCH (09:06)
[2017-06-16] MEDS: FOLIC ACID 1MG TABLET PO SCH (09:06)
[2017-06-16] MEDS: NIFEDIPINE XL 90MG TAB PO SCH (09:06)
[2017-06-16] MEDS: HYDROCODONE/ACETAMINOPHEN 5/325MG TABLET PO PRN ×3 (09:06→17:15)
[2017-06-16] MEDS: PANTOPRAZOLE 40MG DR TABLET PO SCH (09:06)
[2017-06-16] MEDS: THIAMINE HCL 100MG TABLET PO SCH (09:06)
[2017-06-16 12:00] VITALS: BP 127/65
[2017-06-16] MEDS: CEFTRIAXONE 1 G PREMIX 50 ML IV SCH (15:19)
[2017-06-16 16:00] VITALS: BP 134/68
[2017-06-16] MEDS: QUETIAPINE FUMARATE 25MG TABLET PO SCH (17:45)
[2017-06-16 20:00] VITALS: BP 166/64
[2017-06-17] VITALS: BP 104/83
[2017-06-17 04:00] VITALS: BP 173/71
[2017-06-17 08:00] VITALS: BP 136/65
[2017-06-17 08:25] LABS: BASOPHILS % 0.6 % (0.0-2.0); EOSINOPHILS % 5.6 % (0.0-5.0); HEMATOCRIT. 31.7 % (36.0-48.0); HEMOGLOBIN. 10.6 g/dL (12.0-16.0); LYMPHOCYTES % 26.7 % (20.0-50.0); MEAN CORPUSCULAR HEMOGLOBIN 32.6 pg (28.0-32.0); MEAN CORPUSCULAR VOLUME 97.4 fL (81.0-99.0); MEAN PLATELET VOLUME 7.4 fl (7.4-10.4); MONOCYTES % 8.4 % (2.0-8.0); NEUTROPHILS % 58.7 % (40.0-76.0); PLATELET 245 x1000/uL (130-400); RED BLOOD CELL COUNT 3.25 mill/uL (4.2-5.4); RED CELL DISTRIBUTION WIDTH 13.5 % (11.6-14.6)
[2017-06-17] MEDS: THIAMINE HCL 100MG TABLET PO SCH (09:29)
[2017-06-17] MEDS: FOLIC ACID 1MG TABLET PO SCH (09:29)
[2017-06-17] MEDS: DONEPEZIL HCL 5MG TABLET PO SCH (09:30)
[2017-06-17] MEDS: PANTOPRAZOLE 40MG DR TABLET PO SCH (09:30)
[2017-06-17] MEDS: DOCUSATE SODIUM 100MG CAPSULE PO SCH ×2 (09:30→17:28)
[2017-06-17] MEDS: NIFEDIPINE XL 90MG TAB PO SCH (09:31)
[2017-06-17] MEDS: ACETAMINOPHEN 500MG TABLET PO SCH ×3 (09:33→17:28)
[2017-06-17 12:00] VITALS: BP 130/64
[2017-06-17] MEDS: QUETIAPINE FUMARATE 25MG TABLET PO SCH ×2 (12:11→17:28)
[2017-06-17] MEDS: CEFTRIAXONE 1 G PREMIX 50 ML IV SCH (15:00)
[2017-06-17 16:00] VITALS: BP 138/72
[2017-06-17 20:00] VITALS: BP 131/68
[2017-06-18] VITALS: BP 122/78
[2017-06-18 04:00] VITALS: BP 122/61
[2017-06-18 06:37] LABS: AMMONIA < 10 uMol/L (<32)
[2017-06-18 08:00] VITALS: BP 131/70
[2017-06-18] MEDS: QUETIAPINE FUMARATE 25MG TABLET PO SCH ×2 (09:26→17:30)
[2017-06-18] MEDS: DONEPEZIL HCL 5MG TABLET PO SCH (09:26)
[2017-06-18] MEDS: DOCUSATE SODIUM 100MG CAPSULE PO SCH ×2 (09:26→17:30)
[2017-06-18] MEDS: NIFEDIPINE XL 90MG TAB PO SCH (09:27)
[2017-06-18] MEDS: PANTOPRAZOLE 40MG DR TABLET PO SCH (09:27)
[2017-06-18] MEDS: FOLIC ACID 1MG TABLET PO SCH (09:27)
[2017-06-18] MEDS: THIAMINE HCL 100MG TABLET PO SCH (09:28)
[2017-06-18] MEDS: ACETAMINOPHEN 500MG TABLET PO SCH ×3 (09:28→17:32)
[2017-06-18 12:00] VITALS: BP 112/58
[2017-06-18] MEDS: CEFTRIAXONE 1 G PREMIX 50 ML IV SCH (15:00)
[2017-06-18 16:00] VITALS: BP 122/53
[2017-06-18 17:05] LABS: AMMONIA < 25 uMol/L (<32)
[2017-06-18 17:10] LABS: EOSINOPHILS % 5.1 % (0.0-5.0); HEMATOCRIT. 28.9 % (36.0-48.0); HEMOGLOBIN. 9.4 g/dL (12.0-16.0); LYMPHOCYTES % 27.6 % (20.0-50.0); MEAN CORPUSCULAR HEMOGLOBIN 32.1 pg (28.0-32.0); MEAN CORPUSCULAR VOLUME 98.4 fL (81.0-99.0); MEAN PLATELET VOLUME 7.4 fl (7.4-10.4); MONOCYTES % 6.9 % (2.0-8.0); NEUTROPHILS % 59.4 % (40.0-76.0); PLATELET 271 x1000/uL (130-400); RED BLOOD CELL COUNT 2.93 mill/uL (4.2-5.4); RED CELL DISTRIBUTION WIDTH 13.5 % (11.6-14.6)
[2017-06-18 17:14] LABS: T4 FREE 0.88 ng/dL (0.76-1.46)
[2017-06-18 17:39] LABS: VITAMIN B12 SERUM 698 pg/mL (211-911)
[2017-06-18 18:13] LABS: FOLIC ACID (FOLATE) SERUM > 20.00 ng/mL (>5.38)
[2017-06-18 20:00] VITALS: BP 130/64
[2017-06-19] VITALS: BP 129/66
[2017-06-19 04:00] VITALS: BP 150/71
[2017-06-19] MEDS: PANTOPRAZOLE 40MG DR TABLET PO SCH (07:50)
[2017-06-19 08:00] VITALS: BP 141/79
[2017-06-19] MEDS: DOCUSATE SODIUM 100MG CAPSULE PO SCH ×2 (08:46→16:52)
[2017-06-19] MEDS: DONEPEZIL HCL 5MG TABLET PO SCH (08:46)
[2017-06-19] MEDS: FOLIC ACID 1MG TABLET PO SCH (08:46)
[2017-06-19] MEDS: QUETIAPINE FUMARATE 25MG TABLET PO SCH ×3 (08:47→16:52)
[2017-06-19] MEDS: ACETAMINOPHEN 500MG TABLET PO SCH ×3 (08:47→16:52)
[2017-06-19] MEDS: THIAMINE HCL 100MG TABLET PO SCH (08:47)
[2017-06-19] MEDS: NIFEDIPINE XL 90MG TAB PO SCH (08:47)
[2017-06-19 12:05] VITALS: BP 120/69
[2017-06-19] MEDS: CEFTRIAXONE 1 G PREMIX 50 ML IV SCH (14:00)
[2017-06-19 16:00] VITALS: BP 109/63
[2017-06-19 20:00] VITALS: BP 103/73
[2017-06-19] MEDS: ENOXAPARIN 40MG/0.4ML SYR SUBCUT SCH (20:39)
[2017-06-20] VITALS: BP 140/80
[2017-06-20 04:00] VITALS: BP 136/76
[2017-06-20 08:00] VITALS: BP 135/51
[2017-06-20] MEDS: QUETIAPINE FUMARATE 25MG TABLET PO SCH ×3 (08:45→16:34)
[2017-06-20] MEDS: DONEPEZIL HCL 5MG TABLET PO SCH (08:45)
[2017-06-20] MEDS: NIFEDIPINE XL 90MG TAB PO SCH (08:45)
[2017-06-20] MEDS: PANTOPRAZOLE 40MG DR TABLET PO SCH (08:46)
[2017-06-20] MEDS: ACETAMINOPHEN 500MG TABLET PO SCH ×3 (08:46→16:34)
[2017-06-20] MEDS: FOLIC ACID 1MG TABLET PO SCH (08:46)
[2017-06-20] MEDS: THIAMINE HCL 100MG TABLET PO SCH (08:46)
[2017-06-20] MEDS: DOCUSATE SODIUM 100MG CAPSULE PO SCH ×2 (08:46→16:34)
[2017-06-20 12:00] VITALS: BP 144/67
[2017-06-20 16:00] VITALS: BP 132/71
[2017-06-20 20:06] VITALS: BP 145/75
[2017-06-20] MEDS: ENOXAPARIN 40MG/0.4ML SYR SUBCUT SCH (21:00)
[2017-06-21 08:00] VITALS: BP 132/70
[2017-06-21] MEDS: DONEPEZIL HCL 5MG TABLET PO SCH (08:55)
[2017-06-21] MEDS: DOCUSATE SODIUM 100MG CAPSULE PO SCH ×2 (08:55→17:00)
[2017-06-21] MEDS: NIFEDIPINE XL 90MG TAB PO SCH (08:55)
[2017-06-21] MEDS: PANTOPRAZOLE 40MG DR TABLET PO SCH (08:56)
[2017-06-21] MEDS: FOLIC ACID 1MG TABLET PO SCH (08:56)
[2017-06-21] MEDS: THIAMINE HCL 100MG TABLET PO SCH (08:56)
[2017-06-21] MEDS: ACETAMINOPHEN 500MG TABLET PO SCH ×3 (08:56→17:00)
[2017-06-21] MEDS: QUETIAPINE FUMARATE 25MG TABLET PO SCH ×3 (08:57→17:00)
[2017-06-21 12:00] VITALS: BP 132/62
[2017-06-21 16:00] VITALS: BP 148/63
[2017-06-21 20:00] VITALS: BP 149/65
[2017-06-21] MEDS: ENOXAPARIN 40MG/0.4ML SYR SUBCUT SCH (21:31)
[2017-06-22] VITALS: BP 120/68
[2017-06-22 08:00] VITALS: BP 102/69
[2017-06-22] MEDS: NIFEDIPINE XL 90MG TAB PO SCH (09:00)
[2017-06-22] MEDS: ACETAMINOPHEN 500MG TABLET PO SCH ×3 (09:00→17:29)
[2017-06-22] MEDS: DONEPEZIL HCL 5MG TABLET PO SCH (09:25)
[2017-06-22] MEDS: DOCUSATE SODIUM 100MG CAPSULE PO SCH ×2 (09:25→17:29)
[2017-06-22] MEDS: THIAMINE HCL 100MG TABLET PO SCH (09:25)
[2017-06-22] MEDS: FOLIC ACID 1MG TABLET PO SCH (09:26)
[2017-06-22] MEDS: QUETIAPINE FUMARATE 25MG TABLET PO SCH ×3 (09:26→17:29)
[2017-06-22] MEDS: PANTOPRAZOLE 40MG DR TABLET PO SCH (09:26)
[2017-06-22 12:00] VITALS: BP 122/66
[2017-06-22 16:00] VITALS: BP 144/84
[2017-06-22 20:00] VITALS: BP 172/71
[2017-06-22] MEDS: ENOXAPARIN 40MG/0.4ML SYR SUBCUT SCH (21:00)
[2017-06-23] VITALS: BP 152/69
[2017-06-23 04:00] VITALS: BP 109/73
[2017-06-23 08:00] VITALS: BP 144/68
[2017-06-23] MEDS: NIFEDIPINE XL 90MG TAB PO SCH (09:53)
[2017-06-23] MEDS: QUETIAPINE FUMARATE 25MG TABLET PO SCH ×2 (09:54→12:23)
[2017-06-23] MEDS: DOCUSATE SODIUM 100MG CAPSULE PO SCH (09:54)
[2017-06-23] MEDS: PANTOPRAZOLE 40MG DR TABLET PO SCH (09:54)
[2017-06-23] MEDS: DONEPEZIL HCL 5MG TABLET PO SCH (09:54)
[2017-06-23] MEDS: THIAMINE HCL 100MG TABLET PO SCH (09:54)
[2017-06-23] MEDS: FOLIC ACID 1MG TABLET PO SCH (09:56)
[2017-06-23] MEDS: ACETAMINOPHEN 500MG TABLET PO SCH ×2 (09:56→12:23)
[2017-06-23 10:48] VITALS: BP 144/68
[2017-06-23 12:00] VITALS: BP 112/56
== END 2017-06-23 15:30 | DRG 682 ==
LOC: ER 14:43 → 7WST 16:02 → ENRESERV 20:08
PROVIDERS: ADMIT Internal Medicine Nephrology; ATTEND Internal Medicine Nephrology
DX: N17.9 Acute kidney failure, unspecified (principal); G92 Toxic encephalopathy; E44.0 Moderate protein-calorie malnutrition; D63.8 Anemia in other chronic diseases classified elsewhere; N39.0 Urinary tract infection, site not specified; F02.81 Dementia in other diseases classified elsewhere, unspecified severity, with behavioral disturbance; I10 Essential (primary) hypertension; E78.00 Pure hypercholesterolemia, unspecified; G30.9 Alzheimer's disease, unspecified; F29 Unspecified psychosis not due to a substance or known physiological condition; K21.9 Gastro-esophageal reflux disease without esophagitis; Z91.83 Wandering in diseases classified elsewhere
CPT/HCPCS: 36415; 70450; 71010; 80048; 80053; 80061; 80305; 81001; 81003; 82140; 82550; 82607; 82746; 83036; 83605; 83735; 84100; 84439; 84443; 84481; 84484; 85025; 87040; 87086; 92610; 93005; 96361; 96372; 96374; 97116; 97163; 97530; 99285; G0482; J0696; J1650; J2060; J3486; J3490; J7030; J7042

== ENCOUNTER 2018-05-31 13:23 | Emergency (ER) | payer MEDICARE, BC ==
[~2018-05-31] VITALS: Ht 160 cm; Wt 65.0 kg
[2018-05-31 15:15] LABS: BASOPHILS % 0.6 % (0.0-2.0); EOSINOPHILS % 3.1 % (0.0-5.0); HEMATOCRIT. 36.9 % (36.0-48.0); HEMOGLOBIN. 12.3 g/dL (12.0-16.0); LYMPHOCYTES % 27.4 % (20.0-50.0); MEAN CORPUSCULAR HEMOGLOBIN 32.1 pg (28.0-32.0); MEAN CORPUSCULAR VOLUME 95.9 fL (81.0-99.0); MEAN PLATELET VOLUME 7.1 fl (7.4-10.4); MONOCYTES % 9.4 % (2.0-8.0); NEUTROPHILS % 59.5 % (40.0-76.0); PLATELET 265 x1000/uL (130-400); RED BLOOD CELL COUNT 3.85 mill/uL (4.2-5.4); RED CELL DISTRIBUTION WIDTH 13.1 % (11.6-14.6)
[2018-05-31 15:17] LABS: CHLORIDE 104 mEq/L (98-107)
[2018-05-31 16:36] LABS: CLARITY URINE CLEAR (CLEAR); COLOR URINE YELLOW (YELLOW); KETONES URINE NEGATIVE (NEGATIVE); LEUKOCYTE ESTERASE URINE NEGATIVE (NEGATIVE); NITRITE URINE NEGATIVE (NEGATIVE); OCCULT BLOOD URINE NEGATIVE (NEGATIVE); PROTEIN URINE TRACE (NEGATIVE); SPECIFIC GRAVITY URINE 1.021 (1.005-1.030); UROBILINOGEN URINE 0.2 E.U./dL (0.2-1.0)
[2018-05-31 19:07] VITALS: BP 154/95
== END 2018-05-31 19:08 | disposition home or self-care (01) ==
LOC: ER 14:00
DX: F03.90 Unspecified dementia, unspecified severity, without behavioral disturbance, psychotic disturbance, mood disturbance, and anxiety (principal); I10 Essential (primary) hypertension; I51.9 Heart disease, unspecified; Z86.73 Personal history of transient ischemic attack (TIA), and cerebral infarction without residual deficits; Z79.899 Other long term (current) drug therapy
CPT/HCPCS: 36415; 71045; 93005; 99285

== ENCOUNTER 2018-06-28 12:51 | Inpatient (IN) | payer MEDICARE, BC ==
[~2018-06-28] VITALS: Ht 162.6 cm; Wt 69.9 kg
[2018-06-28] MEDS ORDERED: QUET25TA34 PO (12:57)
[2018-06-28] MEDS ORDERED: OMEP20CA10 PO (12:57)
[2018-06-28] MEDS ORDERED: DONE10TA43 PO (12:57)
[2018-06-28] MEDS ORDERED: CALC-1042 PO (12:57)
[2018-06-28] MEDS ORDERED: MELA5TAB19 PO (12:57)
[2018-06-28 15:46] LABS: BASOPHILS % 0.4 % (0.0-2.0); EOSINOPHILS % 1.2 % (0.0-5.0); HEMATOCRIT. 32.7 % (36.0-48.0); HEMOGLOBIN. 11.3 g/dL (12.0-16.0); LYMPHOCYTES % 10.7 % (20.0-50.0); MEAN CORPUSCULAR HEMOGLOBIN 32.9 pg (28.0-32.0); MEAN CORPUSCULAR VOLUME 95.8 fL (81.0-99.0); MEAN PLATELET VOLUME 7.2 fl (7.4-10.4); MONOCYTES % 4.5 % (2.0-8.0); NEUTROPHILS % 83.2 % (40.0-76.0); PLATELET 279 x1000/uL (130-400); RED BLOOD CELL COUNT 3.42 mill/uL (4.2-5.4); RED CELL DISTRIBUTION WIDTH 12.6 % (11.6-14.6)
[2018-06-28 15:50] LABS: PROTHROMBIN TIME 10.4 sec (9.1-11.1)
[2018-06-28 15:54] LABS: CHLORIDE 105 mEq/L (98-107)
[2018-06-28] MEDS ORDERED: ASPIRIN 325MG EC TABLET PO ONE (20:15)
[2018-06-28] MEDS ORDERED: DIPHENHYDRAMINE 50MG/ML VIAL IV PRN (23:00)
[2018-06-28] MEDS ORDERED: ONDANSETRON HCL 4MG/2ML INJ IV PRN (23:00)
[2018-06-28] MEDS ORDERED: ACETAMINOPHEN 650MG/20.3ML UDC GT PRN (23:00)
[2018-06-28] MEDS ORDERED: LORAZEPAM 2MG/ML CPJ IM ONE (23:30)
[2018-06-29 00:30] VITALS: BP 147/73
[2018-06-29] MEDS: SODIUM CHLORIDE 0.9% 1,000 ML IV SCH ×2 (01:13→17:26)
[2018-06-29] MEDS ORDERED: LEVOFLOXACIN 500MG PREMIX 100 ML IV SCH (03:00)
[2018-06-29 04:00] VITALS: BP 130/72
[2018-06-29] MEDS: LORAZEPAM 2MG/ML CPJ IV PRN ×2 (04:37→14:31)
[2018-06-29 08:00] VITALS: BP 145/86
[2018-06-29] MEDS: ENOXAPARIN 40MG/0.4ML SYR SUBCUT SCH (09:14)
[2018-06-29 10:35] LABS: BASOPHILS % 0.6 % (0.0-2.0); EOSINOPHILS % 0.6 % (0.0-5.0); HEMATOCRIT. 33.9 % (36.0-48.0); HEMOGLOBIN. 11.6 g/dL (12.0-16.0); LYMPHOCYTES % 9.5 % (20.0-50.0); MEAN CORPUSCULAR HEMOGLOBIN 33.1 pg (28.0-32.0); MEAN CORPUSCULAR VOLUME 96.6 fL (81.0-99.0); MONOCYTES % 5.5 % (2.0-8.0); NEUTROPHILS % 83.8 % (40.0-76.0); RED BLOOD CELL COUNT 3.51 mill/uL (4.2-5.4)
[2018-06-29 11:09] LABS: PHOSPHORUS 2.4 mg/dL (2.5-4.9)
[2018-06-29 11:41] LABS: MEAN PLATELET VOLUME 8.1 fl (7.4-10.4); PLATELET 234 x1000/uL (130-400)
[2018-06-29 12:00] VITALS: BP 147/66
[2018-06-29 16:00] VITALS: BP 152/65
[2018-06-29] MEDS ORDERED: LEVOFLOXACIN 250MG PREMIX 50 ML IV SCH (21:00)
[2018-06-30 00:32] VITALS: BP 166/80
[2018-06-30] MEDS ORDERED: LEVOFLOXACIN 250MG PREMIX 50 ML IV SCH (03:00)
[2018-06-30 04:00] VITALS: BP 165/81
[2018-06-30 08:00] VITALS: BP 149/80
[2018-06-30] MEDS: ENOXAPARIN 40MG/0.4ML SYR SUBCUT SCH (09:11)
[2018-06-30 12:00] VITALS: BP 137/73
[2018-06-30 16:42] LABS: BASOPHILS % 0.6 % (0.0-2.0); EOSINOPHILS % 1.1 % (0.0-5.0); HEMATOCRIT. 34.5 % (36.0-48.0); HEMOGLOBIN. 11.8 g/dL (12.0-16.0); LYMPHOCYTES % 19.9 % (20.0-50.0); MEAN CORPUSCULAR HEMOGLOBIN 32.9 pg (28.0-32.0); MEAN CORPUSCULAR VOLUME 96.1 fL (81.0-99.0); MEAN PLATELET VOLUME 7.1 fl (7.4-10.4); MONOCYTES % 7.2 % (2.0-8.0); NEUTROPHILS % 71.2 % (40.0-76.0); PLATELET 279 x1000/uL (130-400); RED BLOOD CELL COUNT 3.59 mill/uL (4.2-5.4); RED CELL DISTRIBUTION WIDTH 12.7 % (11.6-14.6)
== END 2018-06-30 16:12 | disposition left against medical advice (07) | DRG 683 ==
LOC: ER 14:41 → 7WST 17:14 → EDBEDREQTM 17:15 → EDBEDREQ 17:15 → ENRESERV 23:29
PROVIDERS: ADMIT Internal Medicine Nephrology; ATTEND Internal Medicine Nephrology
DX: N17.9 Acute kidney failure, unspecified (principal); N39.0 Urinary tract infection, site not specified; G93.40 Encephalopathy, unspecified; E44.1 Mild protein-calorie malnutrition; I50.32 Chronic diastolic (congestive) heart failure; E78.5 Hyperlipidemia, unspecified; F03.90 Unspecified dementia, unspecified severity, without behavioral disturbance, psychotic disturbance, mood disturbance, and anxiety; I11.0 Hypertensive heart disease with heart failure; D64.9 Anemia, unspecified; Z53.21 Procedure and treatment not carried out due to patient leaving prior to being seen by health care provider; I27.20 Pulmonary hypertension, unspecified; Z86.73 Personal history of transient ischemic attack (TIA), and cerebral infarction without residual deficits; Z79.1 Long term (current) use of non-steroidal anti-inflammatories (NSAID); Z79.899 Other long term (current) drug therapy; Z68.26 Body mass index [BMI] 26.0-26.9, adult
CPT/HCPCS: 36415; 71045; 80048; 82962; 83605; 83735; 83880; 84100; 84484; 93005; 97162; 99285; J1650; J1956; J2060; J7030

== ENCOUNTER 2021-09-22 10:22 | Inpatient (IN) | payer MEDICARE, BC ==
[~2021-09-22] VITALS: Ht 165.1 cm; Wt 85.3 kg
[~2021-09-22 10:22] MED LIST changes: -ACET-2178 PO; +CALC-1042 PO; +CITA10SO PO; +CITA10TA16 PO; +CLON-457 PO; +DONE10TA43 PO; +FOLI0.4T6 MT; +MELA10CA MT; +MELA5TAB19 PO; +METO25TA6 MT; +MIRT-118 MT; +OMEP20CA14 PO; +POLY17PO3 MT; +QUET25TA36 PO; +QUET50TA MT; +TOPUD PO
[2021-09-22 11:31] LABS: BASOPHILS % 0.4 % (0.0-2.0); EOSINOPHILS % 4.4 % (0.0-5.0); HEMATOCRIT. 33.4 % (36.0-48.0); LYMPHOCYTES % 27.5 % (20.0-50.0); MEAN CORPUSCULAR HEMOGLOBIN 31.3 pg (28.0-32.0); MEAN CORPUSCULAR VOLUME 94.9 fL (81.0-99.0); MEAN PLATELET VOLUME 7.6 fl (7.4-10.4); MONOCYTES % 12.4 % (2.0-8.0); NEUTROPHILS % 55.3 % (40.0-76.0); PLATELET 203 x1000/uL (130-400); RED BLOOD CELL COUNT 3.53 mill/uL (4.2-5.4); RED CELL DISTRIBUTION WIDTH 12.3 % (11.6-14.6)
[2021-09-22 11:36] LABS: CHLORIDE 101 mEq/L (98-107)
[2021-09-22 11:37] LABS: INR 1.1; PROTHROMBIN TIME 11.3 sec (9.6-11.0)
[2021-09-22 11:39] LABS: CLARITY URINE CLEAR (CLEAR); COLOR URINE YELLOW (YELLOW); KETONES URINE NEGATIVE (NEGATIVE); LEUKOCYTE ESTERASE URINE NEGATIVE (NEGATIVE); NITRITE URINE NEGATIVE (NEGATIVE); OCCULT BLOOD URINE NEGATIVE (NEGATIVE); PH URINE 7.5 (4.5-8.0); PROTEIN URINE TRACE (NEGATIVE); SPECIFIC GRAVITY URINE 1.058 (1.005-1.030); UROBILINOGEN URINE 0.2 E.U./dL (0.2-1.0)
[2021-09-22] MEDS ORDERED: IOHEXOL-350 100 ML BOTTLE ONE (11:39)
[2021-09-22 11:41] LABS: ETHANOL BLOOD < 10 mg/dL
[2021-09-22] MEDS ORDERED: *NO ASPIRIN X 24 HOURS XX SCH (11:45)
[2021-09-22] MEDS ORDERED: ALTEPLASE 100MG/VIAL IV SCH (11:45)
[2021-09-22] MEDS ORDERED: CONTAINER EMPTY IV SCH (12:00)
[2021-09-22] MEDS ORDERED: ALTEPLASE IV SCH (12:00)
[2021-09-22 12:13] LABS: *AMPHETAMINES SCREEN URINE NEGATIVE (NEGATIVE); *BARBITURATES SCREEN URINE NEGATIVE (NEGATIVE); *BENZODIAZEPINES SCREEN URINE NEGATIVE (NEGATIVE); *COCAINE SCREEN URINE NEGATIVE (NEGATIVE); CANNABINOID URINE SCREEN NEGATIVE (NEGATIVE); OPIATES URINE SCREEN NEGATIVE (NEGATIVE)
[2021-09-22 12:14] LABS: PHENCYCLIDINE URINE SCREEN NEGATIVE (NEGATIVE)
[2021-09-22 12:15] LABS: METHADONE URINE SCREEN NEGATIVE (NEGATIVE)
[2021-09-22 12:18] LABS: BG BASE EXCESS 1.2 mmol/L (-2.0-2.0); BG CARBOXYHEMOGLOBIN 0.4 % (0.5-1.5); BG DEOXYHEMOGLOBIN 5.9 % (0.0-5.0); BG FRACTION INSPIRED OXYGEN 21; BG HCO3 ACT 26.7 mmol/L (22.0-26.0); BG METHEMOGLOBIN 0.3 % (0.0-1.5); BG OXYGEN SATURATION 94.1 % (92.0-98.5); BG OXYHEMOGLOBIN 93.4 % (94.0-97.0); BG PCO2 45.9 mmHg (35.0-45.0); BG PH 7.382 (7.350-7.450); BG PO2 73.9 mmHg (75.0-100.0); BG SAMPLE SITE RIGHT BRACHIAL; BG TOTAL HEMOGLOBIN 12.6 g/dL (12.0-18.0); BG VENT MODE ROOM AIR
[2021-09-22] MEDS ORDERED: ACETAMINOPHEN 325MG TABLET PO PRN ×2 (14:45)
[2021-09-22] MEDS ORDERED: ONDANSETRON HCL 4MG/2ML INJ IV PRN (14:45)
[2021-09-22] MEDS ORDERED: MAGNESIUM/ALUMINUM HYDROXIDE/SIMETHICONE 30ML UDC PO PRN (14:45)
[2021-09-22] MEDS ORDERED: GUAIFENESIN 200MG/10ML SUGAR FREE UDC PO PRN (14:45)
[2021-09-23] MEDS: SODIUM CHLORIDE 0.9% 1,000 ML IV SCH ×2 (01:00→11:00)
[2021-09-23 21:30] VITALS: BP 133/55
[2021-09-23 21:48] VITALS: BP 133/55
[2021-09-23 22:00] VITALS: BP 147/57
[2021-09-24] VITALS (16 sets, daily range): BP systolic 111–162; BP diastolic 45–98
[2021-09-24] MEDS ORDERED: FAMO40TA7 PO (06:57)
[2021-09-24 09:08] LABS: BASOPHILS % 0.7 % (0.0-2.0); EOSINOPHILS % 2.3 % (0.0-5.0); HEMATOCRIT. 35.6 % (36.0-48.0); HEMOGLOBIN. 11.8 g/dL (12.0-16.0); LYMPHOCYTES % 17.8 % (20.0-50.0); MEAN CORPUSCULAR VOLUME 96.7 fL (81.0-99.0); MEAN PLATELET VOLUME 7.5 fl (7.4-10.4); MONOCYTES % 11.3 % (2.0-8.0); NEUTROPHILS % 67.9 % (40.0-76.0); PLATELET 209 x1000/uL (130-400); RED BLOOD CELL COUNT 3.68 mill/uL (4.2-5.4); RED CELL DISTRIBUTION WIDTH 12.6 % (11.6-14.6)
[2021-09-24 09:28] LABS: CHLORIDE 108 mEq/L (98-107)
[2021-09-24 09:40] LABS: PHOSPHORUS 3.2 mg/dL (2.5-4.9)
[2021-09-24 09:43] LABS: HDL CHOLESTEROL 82 mg/dL (40-59)
[2021-09-24 09:48] LABS: LDL CHOLESTEROL 58 mg/dL (5-100)
[2021-09-24 10:03] LABS: VITAMIN B12 SERUM 426 pg/mL (211-911)
[2021-09-24 10:39] LABS: FOLIC ACID (FOLATE) SERUM > 20.00 ng/mL (>5.38)
[2021-09-24] MEDS: SODIUM CHLORIDE 0.9% 1,000 ML IV SCH ×2 (12:07→21:38)
[2021-09-24 12:10] LABS: FERRITIN 107 ng/mL (10-291)
[2021-09-25] VITALS (15 sets, daily range): BP systolic 118–161; BP diastolic 62–91
[2021-09-25] MEDS: SODIUM CHLORIDE 0.9% 1,000 ML IV SCH ×2 (04:24→09:30)
[2021-09-25 07:13] LABS: CHLORIDE 113 mEq/L (98-107)
[2021-09-25 07:14] LABS: BASOPHILS % 0.5 % (0.0-2.0); EOSINOPHILS % 4.9 % (0.0-5.0); HEMATOCRIT. 31.1 % (36.0-48.0); HEMOGLOBIN. 10.7 g/dL (12.0-16.0); LYMPHOCYTES % 22.4 % (20.0-50.0); MEAN CORPUSCULAR HEMOGLOBIN 32.3 pg (28.0-32.0); MEAN CORPUSCULAR VOLUME 94.1 fL (81.0-99.0); MEAN PLATELET VOLUME 7.6 fl (7.4-10.4); MONOCYTES % 10.8 % (2.0-8.0); NEUTROPHILS % 61.4 % (40.0-76.0); PLATELET 188 x1000/uL (130-400); RED CELL DISTRIBUTION WIDTH 12.2 % (11.6-14.6)
[2021-09-25 07:20] LABS: PHOSPHORUS 2.5 mg/dL (2.5-4.9)
[2021-09-25] MEDS ORDERED: LORAZEPAM 0.5MG TABLET PO PRN (12:15)
[2021-09-25] MEDS ORDERED: LACTULOSE 20G/30ML UDC PO NR (13:15)
[2021-09-25] MEDS ORDERED: LORAZEPAM 2MG/ML CPJ IV NR (14:15)
[2021-09-25] MEDS: QUETIAPINE FUMARATE 25MG TABLET PO SCH ×2 (15:44→22:11)
[2021-09-25] MEDS: LACTULOSE 20G/30ML UDC PO SCH (17:57)
[2021-09-26] VITALS (13 sets, daily range): BP systolic 124–164; BP diastolic 48–91
[2021-09-26] MEDS: SODIUM CHLORIDE 0.9% 1,000 ML IV SCH ×3 (00:18→22:09)
[2021-09-26] MEDS: ASPIRIN 81MG TABLET PO SCH (08:39)
[2021-09-26] MEDS: MEMANTINE HCL 5MG TABLET PO SCH (08:39)
[2021-09-26] MEDS: QUETIAPINE FUMARATE 25MG TABLET PO SCH ×2 (08:39→17:09)
[2021-09-26] MEDS: METOPROLOL TARTRATE 25MG TABLET PO SCH ×2 (12:00→21:50)
[2021-09-26 12:53] LABS: TOTAL IRON BINDING CAPACITY 330 ug/dL (250-450)
[2021-09-26] MEDS: OMEPRAZOLE 20MG CAPSULE EXTENDED RELEASE PO SCH (17:09)
[2021-09-26] MEDS: CITALOPRAM HYDROBROMIDE 10MG TABLET PO SCH (17:09)
[2021-09-26] MEDS: LACTULOSE 20G/30ML UDC PO SCH (17:10)
[2021-09-26] MEDS ORDERED: QUETIAPINE FUMARATE 25MG TABLET PO SCH (21:00)
[2021-09-26] MEDS ORDERED: MIRTAZAPINE 15MG TABLET PO SCH (21:00)
[2021-09-26] MEDS ORDERED: DONEPEZIL HCL 10MG TABLET PO SCH (21:00)
[2021-09-27] VITALS (10 sets, daily range): BP systolic 135–154; BP diastolic 34–86
[2021-09-27] MEDS: SODIUM CHLORIDE 0.9% 1,000 ML IV SCH (05:34)
[2021-09-27] MEDS: OMEPRAZOLE 20MG CAPSULE EXTENDED RELEASE PO SCH ×2 (06:50→06:54)
[2021-09-27] MEDS: CITALOPRAM HYDROBROMIDE 10MG TABLET PO SCH ×2 (09:00→09:13)
[2021-09-27] MEDS: METOPROLOL TARTRATE 25MG TABLET PO SCH (09:00)
[2021-09-27] MEDS: MEMANTINE HCL 5MG TABLET PO SCH ×2 (09:00→09:14)
[2021-09-27] MEDS: ASPIRIN 81MG TABLET PO SCH ×2 (09:00→09:13)
[2021-09-27] MEDS: QUETIAPINE FUMARATE 25MG TABLET PO SCH (09:14)
[2021-09-27] MEDS: LACTULOSE 20G/30ML UDC PO SCH (18:43)
== END 2021-09-27 19:55 | disposition home health service (06) | DRG 72 ==
LOC: ER 10:22 → MICUSO 13:18 → EDBEDREQ 13:35 → EDBEDREQTM 13:35 → EDBEDREQSVC 13:35 → SUPCPDRO 13:43 → 3WST 09-23 21:20
PROVIDERS: ADMIT Internal Medicine; ATTEND Internal Medicine
DX: G93.40 Encephalopathy, unspecified (principal); I10 Essential (primary) hypertension; E78.5 Hyperlipidemia, unspecified; F03.90 Unspecified dementia, unspecified severity, without behavioral disturbance, psychotic disturbance, mood disturbance, and anxiety; I48.91 Unspecified atrial fibrillation; Z20.822 Contact with and (suspected) exposure to COVID-19; R29.810 Facial weakness; R47.81 Slurred speech; K21.9 Gastro-esophageal reflux disease without esophagitis; Z86.73 Personal history of transient ischemic attack (TIA), and cerebral infarction without residual deficits; M47.812 Spondylosis without myelopathy or radiculopathy, cervical region
CPT/HCPCS: 36415; 36600; 70496; 70498; 70551; 71045; 80048; 80053; 80061; 80305; 80320; 81003; 82375; 82607; 82728; 82746; 82805; 82962; 83540; 83550; 83605; 83735; 84100; 84484; 85025; 87426; 92610; 93005; 97162; 97165; 99291; C1893; J2060; J2997; J7030; J7060; Q9967; A4315; G0480